=== PATIENT | female | born 1965 | race Two or more races ===

== ENCOUNTER 2019-03-09 09:26 | Emergency (ER) | payer OTHER ==
[~2019-03-09] VITALS: Ht 157.5 cm; Wt 73.9 kg
[~2019-03-09 09:26] MED LIST: FLEXERIL10 MG PO; KETO10TA2 PO
== END 2019-03-09 11:15 | disposition home or self-care (01) ==
LOC: ER 09:26
DX: M62.838 Other muscle spasm (principal); M43.6 Torticollis

== ENCOUNTER 2023-01-26 09:46 | Emergency (ER) | payer OTHER ==
[~2023-01-26] VITALS: Ht 154.9 cm; Wt 71.7 kg
== END 2023-01-26 13:00 | disposition home or self-care (01) ==
LOC: ER 09:46
DX: R53.81 Other malaise (principal); E86.0 Dehydration

== ENCOUNTER 2024-08-09 14:50 | Emergency (ER) | payer OTHER ==
[~2024-08-09] VITALS: Ht 160 cm; Wt 63.5 kg
[2024-08-09] MEDS ORDERED: KETOROLAC TROMETHAMINE 30 MG VIAL IM STA (18:41)
== END 2024-08-09 19:00 | disposition home or self-care (01) ==
LOC: ER 14:52
DX: M54.89 Other dorsalgia (principal)